=== PATIENT | male | born 1965 | race Caucasian/White ===

== ENCOUNTER 2020-08-13 16:22 | Emergency (ER) | payer MEDICARE, OTHER ==
[~2020-08-13] VITALS: Ht 165.1 cm; Wt 75.0 kg
[~2020-08-13 16:22] MED LIST: ASPI-1450 PO; SIMV-260 PO; TOPI25 PO
[2020-08-13] MEDS ORDERED: BENZONATATE 100 MG CAPSULE PO ONE (18:00)
[2020-08-13 18:32] VITALS: BP 139/87
== END 2020-08-13 18:45 | disposition home or self-care (01) ==
LOC: EMS 16:22
DX: R05 Cough (principal)
CPT/HCPCS: 99283; 71045-TC